=== PATIENT | male | born 1995 | race African-American/Black ===

== ENCOUNTER 2020-04-14 01:27 | Emergency (ER) | payer OTHER ==
[~2020-04-14] VITALS: Ht 167.6 cm; Wt 79.5 kg
[2020-04-14] MEDS ORDERED: AMOXICILLIN 50500 MG PO (01:46)
[2020-04-14 01:58] VITALS: BP 132/68; PULSE 75; TEMP 97.3
== END 2020-04-14 01:58 | disposition home or self-care (01) ==
LOC: COL.ER 01:27
DX: J02.9 Acute pharyngitis, unspecified (principal)
CPT/HCPCS: J1100

== ENCOUNTER 2020-07-24 23:26 | Emergency (ER) | payer OTHER ==
[~2020-07-24] VITALS: Ht 170.2 cm; Wt 81.8 kg
[~2020-07-24 23:26] MED LIST: AMOXICILLIN 50500 MG PO
[2020-07-24 23:32] VITALS: BP 126/77; PULSE 91; TEMP 97.9
== END 2020-07-24 23:57 | disposition home or self-care (01) ==
LOC: COL.ER 23:26
DX: J06.9 Acute upper respiratory infection, unspecified (principal); H69.93 Unspecified Eustachian tube disorder, bilateral